=== PATIENT | male | born 1940 | race Caucasian/White ===

== ENCOUNTER → 2016-10-19 | Outpatient (CLI) | payer MEDICARE | END | disposition home or self-care (01) | LOC: PCVCIMAG 13:32 | PROVIDERS: ATTEND Internal Medicine | DX: I25.10 Atherosclerotic heart disease of native coronary artery without angina pectoris (principal); E78.00 Pure hypercholesterolemia, unspecified; I77.9 Disorder of arteries and arterioles, unspecified; I10 Essential (primary) hypertension; I65.23 Occlusion and stenosis of bilateral carotid arteries | CPT/HCPCS: 80061; 93005; 93880; G0463 ==

== ENCOUNTER → 2017-04-27 | Outpatient (CLI) | payer MEDICARE | END | disposition home or self-care (01) | LOC: PCVCCLINIC 13:50 | PROVIDERS: ATTEND Internal Medicine | DX: I25.10 Atherosclerotic heart disease of native coronary artery without angina pectoris (principal); I10 Essential (primary) hypertension; I65.23 Occlusion and stenosis of bilateral carotid arteries; E78.5 Hyperlipidemia, unspecified; M19.90 Unspecified osteoarthritis, unspecified site; E78.00 Pure hypercholesterolemia, unspecified; Z85.46 Personal history of malignant neoplasm of prostate; Z95.1 Presence of aortocoronary bypass graft; Z90.79 Acquired absence of other genital organ(s); Z96.652 Presence of left artificial knee joint; Z79.82 Long term (current) use of aspirin; Z87.891 Personal history of nicotine dependence; Z91.048 Other nonmedicinal substance allergy status | CPT/HCPCS: 80061; 93005; G0463 ==

== ENCOUNTER → 2017-10-19 | Outpatient (CLI) | payer MEDICARE | END | disposition home or self-care (01) | LOC: PCVCIMAG 13:41 | DX: I25.10 Atherosclerotic heart disease of native coronary artery without angina pectoris (principal); I65.23 Occlusion and stenosis of bilateral carotid arteries; I10 Essential (primary) hypertension; E78.5 Hyperlipidemia, unspecified; Z87.891 Personal history of nicotine dependence; Z79.899 Other long term (current) drug therapy | CPT/HCPCS: 80061; 93005; 93880; G0463 ==

== ENCOUNTER → 2018-04-19 | Outpatient (CLI) | payer MEDICARE | END | disposition home or self-care (01) | LOC: PCVCCLINIC 13:50 | DX: I25.10 Atherosclerotic heart disease of native coronary artery without angina pectoris (principal); I65.23 Occlusion and stenosis of bilateral carotid arteries; I10 Essential (primary) hypertension; E78.5 Hyperlipidemia, unspecified; Z79.82 Long term (current) use of aspirin; Z79.899 Other long term (current) drug therapy | CPT/HCPCS: 80061; 93005; G0463 ==

== ENCOUNTER → 2018-10-16 | Outpatient (CLI) | payer MEDICARE ==
--- NOTE | 2018-10-16 14:39 | PCVCIMAG ---
APPROVED REPORT Indications Stenosis History of Smoking Risk Factors Hypertension: Doppler Spectral Velocity Analysis PSV / EDVPSV / EDV ECA (R) 114 / 14 cm/sECA (L) 121 / 11 cm/s dICA (R) 89 / 17 cm/sdICA (L) 75 / 20 cm/s Nasir (R) 154 / 38 cm/smICA (L) 89 / 26 cm/s pICA (R) 170 / 52 cm/spICA (L) 100 / 26 cm/s Bulb (R) 59 / 13 cm/sBulb (L) 86 / 19 cm/s dCCA (R) 61 / 13 cm/sdCCA (L) 71 / 17 cm/s mCCA (R) 61 / 13 cm/smCCA (L) 80 / 15 cm/s Vert (R) 43 / 8 cm/sVert (L) 40 / 13 cm/s ICA/CCA 2.79ICA/CCA 1.41 Basic Measurements Blood Pressure: Pulses: Right Left RightLeft Brachial(Sitting) 122/37otRw412/64mmHgTemporal Real Time B-Mode Imaging Vert. (R)AntegradeVert. (L)Antegrade Findings The right carotid bulb has moderately severe calcified plaque. The right proximal internal carotid artery shows 60-70% stenosis. The right common carotid artery shows no significant stenosis. The right external carotid artery shows no significant stenosis. The left carotid bulb has moderate calcified plaque. The left proximal internal carotid artery shows <40% stenosis. The left common carotid artery shows no significant stenosis. The left external carotid artery shows no significant stenosis. Conclusion 1. Right internal carotid artery stenosis (60-70%) 2. Left internal carotid artery stenosis (<40%) 3. Antegrade vertebral flow Similar to October 2017
== END | disposition home or self-care (01) ==
LOC: PCVCIMAG 13:14
PROVIDERS: ATTEND Internal Medicine
DX: I25.10 Atherosclerotic heart disease of native coronary artery without angina pectoris (principal); I65.23 Occlusion and stenosis of bilateral carotid arteries; I10 Essential (primary) hypertension; E78.5 Hyperlipidemia, unspecified; M19.90 Unspecified osteoarthritis, unspecified site; E78.00 Pure hypercholesterolemia, unspecified; Z79.82 Long term (current) use of aspirin; Z87.891 Personal history of nicotine dependence
CPT/HCPCS: 36415; 80061; 93005; 93880; G0463

== ENCOUNTER → 2019-04-22 | Outpatient (CLI) | payer MEDICARE | END | disposition home or self-care (01) | LOC: PCVCCLINIC 16:27 | PROVIDERS: ATTEND Internal Medicine | DX: I25.10 Atherosclerotic heart disease of native coronary artery without angina pectoris (principal); I65.23 Occlusion and stenosis of bilateral carotid arteries; I10 Essential (primary) hypertension; E78.5 Hyperlipidemia, unspecified; Z79.82 Long term (current) use of aspirin; Z87.891 Personal history of nicotine dependence | CPT/HCPCS: 36415; 80061; 93005; G0463 ==

== ENCOUNTER → 2019-09-16 | Outpatient (CLI) | payer MEDICARE ==
[~2019-09-16] MED LIST: REGADENOSON 0.4 MG/5 ML DISP.SYRIN. IV ONE
--- NOTE | 2019-09-16 09:57 | PCVCIMAG ---
APPROVED REPORT Indications Stenosis Doppler Spectral Velocity Analysis PSV / EDVPSV / EDV ECA (R) 85 / 10 cm/sECA (L) 81 / 11 cm/s dICA (R) 103 / 25 cm/sdICA (L) 122 / 40 cm/s Nasir (R) 161 / 36 cm/smICA (L) 138 / 37 cm/s pICA (R) 160 / 58 cm/spICA (L) 90 / 28 cm/s Bulb (R) 31 / 12 cm/sBulb (L) 68 / 24 cm/s dCCA (R) 65 / 21 cm/sdCCA (L) 78 / 16 cm/s mCCA (R) 81 / 12 cm/smCCA (L) 78 / 15 cm/s Vert (R) 31 / 8 cm/sVert (L) 28 / 8 cm/s ICA/CCA 1.77 ICA/CCA 2.00 Basic Measurements Blood Pressure: Pulses: Right Left RightLeft Brachial(Sitting) 114/20vjXb620/72mmHgTemporal Real Time B-Mode Imaging Vert. (R)AntegradeVert. (L)Antegrade Findings The right carotid bulb has moderate calcified plaque. The right proximal internal carotid artery shows 60-70% stenosis. The right common carotid artery shows no significant stenosis. The right external carotid artery shows no significant stenosis. The left carotid bulb has moderate plaque. The left proximal internal carotid artery shows 40-50% stenosis. The left common carotid artery shows no significant stenosis. The left external carotid artery shows no significant stenosis. Conclusion 1. Right internal carotid artery stenosis (60-70%). 2. Left internal carotid artery stenosis (40-50%) 3. Antegrade vertebral flow Similar to study dated October 2018.
--- NOTE | 2019-09-17 08:48 | PCVCIMAG ---
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 Time of rest injection: 914 Date: 09/16/2019 Administration Route: IV Administration Site: Right Arm Pharmacologic Stress Pharmacologic stress test was performed by injecting Regadenoson 0.4 mg IV push over 10-15 seconds immediately followed by the intravenous injection of 32.2 mCi of Tc-99m Sestamibi. Time of stress injection: 0 Date: 09/16/2019 Administration Route: IV Administration Site: Right Arm Gated Stress SPECT was performed 45 minutes after stress injection. The images were gated to evaluate regional wall motion and calculate left ventricular ejection fraction. Stress Test Details Stress Test: Pharmacologic stress testing performed using 0.4 mg of regadenoson per 5 mL given IV over 10 seconds. Reason for pharmacologic stress test: physical limitation. HRMax Heart Rate (APMHR): 139 bpm Resting HR: 73 bpmTarget HR (85% APMHR): 118 bpm Max HR Achieved: 99 bpm % of APMHR: 71 Recovery HR: 90 bpm BP Resting BP: 158/72 mmHg Max BP: 134/63 mmHg Recovery BP: 124/62 mmHg ECG Resting ECG: Sinus Rhythm, nonspecific ST-T abnormalities Stress ECG: Sinus Tachycardia, nonspecific ST-T abnormalities ST Change: None Maximum ST Deviation: 0 mm Arrhythmia: PVC's Recovery ECG: Sinus Rhythm, nonspecific ST-T abnormalities Recovery ST Change: Normal Recovery ST Deviation: 0 mm Recovery Arrhythmia: None Clinical Reason for Termination: Completed protocol Stress Symptoms: Dyspnea Symptoms resolved with caffeine. Stress ECG Conclusion ECG: Non-ischemic Clinical: Non-ischemic Study Quality Study: Good Study Data Post stress, the left ventricular ejection was 78%.. SSS: 0 SRS: 0 SDS: 0 TID = 1.30. Perfusion No evidence of stress induced ischemia or prior myocardial infarction. Wall Motion Normal left ventricular size and function with no regional wall motion abnormalities. Nuclear Conclusion No evidence of stress induced ischemia or prior myocardial infarction. Normal left ventricular size and function with no regional wall motion abnormalities. Post stress, the left ventricular ejection was 78%. No prior study available for comparison. Interpreted by: Fran Nichols MD Electronically Approved: 09/16/2019 21:22:56 <Conclusion> ECG: Non-ischemic Clinical: Non-ischemic
== END | disposition home or self-care (01) ==
LOC: PCVCIMAG 08:44
PROVIDERS: ATTEND Internal Medicine
DX: I25.10 Atherosclerotic heart disease of native coronary artery without angina pectoris (principal); I10 Essential (primary) hypertension; E78.5 Hyperlipidemia, unspecified; I65.23 Occlusion and stenosis of bilateral carotid arteries; E78.00 Pure hypercholesterolemia, unspecified; Z87.891 Personal history of nicotine dependence; Z79.82 Long term (current) use of aspirin; Z79.899 Other long term (current) drug therapy
CPT/HCPCS: 78452; 93017; 93880; A9500; J2785